=== PATIENT | female | born 1930 | race Caucasian/White ===

== ENCOUNTER 2016-11-12 16:02 | Emergency (ER) | payer MEDICARE ==
[2016-11-12 17:24] LABS: BASOPHILS 0.8 % (0.0-2.0); EOSINOPHILS 5.5 % (0-7); HEMATOCRIT 41.7 % (36.0-48.0); HEMOGLOBIN 13.7 g/dL (12-16); IMMATURE GRANULOCYTES 0.2 % (0-5); LYMPHOCYTES 38.5 % (15-50); MCH 31.7 pg (26.0-34.0); MCHC 32.9 g/dL (31.0-37.0); MCV 96.5 fL (80.0-100.0); MEAN PLATELET VOLUME 10.5 fL (7.4-10.4); MONOCYTES 11.9 % (2-11); NEUTROPHILS 43.1 % (40-80); PLATELET COUNT 135 10x3/uL (130-400); RBC 4.32 10x6/uL (4.00-5.40); RDW 13.8 % (11.5-14.5); WBC 5.1 10x3/uL (4.8-10.8)
[2016-11-12 17:37] LABS: ALBUMIN 3.5 g/dL (3.4-5.0); ANION GAP 11.9 mmol/L (8-16); BILIRUBIN - TOTAL 0.43 mg/dL (0.2-1.3); CALCIUM 9.1 mg/dL (8.5-10.1); CARBON DIOXIDE 29.9 mmol/L (21.0-32.0); CREATININE - SERUM 1.1 mg/dL (0.6-1.3); POTASSIUM - SERUM 3.8 mmol/L (3.5-5.1); PROTEIN - SERUM 7.1 g/dL (6.4-8.2)
[2016-11-12 17:41] LABS: APPEARANCE HAZY (CLEAR); BACTERIA MODERATE /hpf (NONE SEEN); BILIRUBIN NEGATIVE (NEGATIVE); COLOR YELLOW (YELLOW); EPITHELIAL CELLS 0-5 /hpf (0-5); GLUCOSE NEGATIVE (NEGATIVE); KETONE NEGATIVE (NEGATIVE); LEUKOCYTE ESTERASE TRACE (NEGATIVE); MUCUS <1+ /lpf (NONE SEEN); NITRITE NEGATIVE (NEGATIVE); PROTEIN NEGATIVE (NEGATIVE); UROBILINOGEN NORMAL (NORMAL); WHITE CELLS - URINE 0-5 /hpf (0-5)
== END 2016-11-12 20:43 | disposition home or self-care (01) ==
LOC: D.ER 16:02
PROVIDERS: Family Medicine
DX: R60.9 Edema, unspecified (principal); E11.9 Type 2 diabetes mellitus without complications; I10 Essential (primary) hypertension; E03.9 Hypothyroidism, unspecified

== ENCOUNTER 2017-01-25 03:23 | Emergency (ER) | payer MEDICARE ==
[2017-01-25 06:06] LABS: BASOPHILS 0.2 % (0-2); HEMOGLOBIN 14.7 g/dL (12-16); IMMATURE GRANULOCYTES 0.2 % (0-5); LYMPHOCYTES 8.2 % (15-50); MCH 31.3 pg (26.0-34.0); MCHC 32.7 g/dL (31.0-37.0); MCV 95.7 fL (80.0-100.0); MONOCYTES 4.9 % (2-11); NEUTROPHILS 85.5 % (40-80); RDW 13.6 % (11.5-14.5); WBC 12.6 10x3/uL (4.8-10.8)
[2017-01-25 06:14] LABS: ANION GAP 13.3 mmol/L (8-16); CALCIUM 9.2 mg/dL (8.5-10.1); CARBON DIOXIDE 28.8 mmol/L (21.0-32.0); CREATININE - SERUM 1.1 mg/dL (0.6-1.3); POTASSIUM - SERUM 4.1 mmol/L (3.5-5.1)
[2017-01-25 06:29] LABS: PLATELET COUNT 164 10x3/uL (130-400)
== END 2017-01-25 08:25 | disposition home or self-care (01) ==
LOC: D.ER 03:23
PROVIDERS: Emergency Medicine Emergency Medical Services
DX: K29.00 Acute gastritis without bleeding (principal); R11.0 Nausea; R53.81 Other malaise; E11.9 Type 2 diabetes mellitus without complications; I10 Essential (primary) hypertension; E03.9 Hypothyroidism, unspecified

== ENCOUNTER → 2018-09-12 12:26 | Outpatient (CLI) | payer MEDICARE ==
[2018-09-12 14:50] LABS: APPEARANCE CLEAR (CLEAR); BILIRUBIN NEGATIVE (NEGATIVE); COLOR YELLOW (YELLOW); GLUCOSE NEGATIVE (NEGATIVE); KETONE NEGATIVE (NEGATIVE); NITRITE NEGATIVE (NEGATIVE); PROTEIN NEGATIVE (NEGATIVE); UROBILINOGEN NORMAL (NORMAL)
[2018-09-12 14:53] LABS: BASOPHILS 0.6 % (0-2); EOSINOPHILS 4.3 % (0-7); HEMATOCRIT 41.7 % (36.0-48.0); HEMOGLOBIN 13.7 g/dL (12-16); IMMATURE GRANULOCYTES 0.2 % (0-5); LYMPHOCYTES 26.1 % (15-50); MCH 31.4 pg (26.0-34.0); MCHC 32.9 g/dL (31.0-37.0); MCV 95.6 fL (80.0-100.0); MEAN PLATELET VOLUME 10.8 fL (7.4-10.4); MONOCYTES 10.6 % (2-11); NEUTROPHILS 58.2 % (40-80); PLATELET COUNT 151 10x3/uL (130-400); RBC 4.36 10x6/uL (4.00-5.40); RDW 14.1 % (11.5-14.5); WBC 4.6 10x3/uL (4.8-10.8)
[2018-09-12 15:13] LABS: ALBUMIN 3.2 g/dL (3.4-5.0); ANION GAP 11.6 mmol/L (8-16); BILIRUBIN - TOTAL 0.39 mg/dL (0.2-1.3); CALCIUM 8.5 mg/dL (8.5-10.1); CARBON DIOXIDE 31.8 mmol/L (21.0-32.0); CREATININE - SERUM 0.9 mg/dL (0.6-1.3); POTASSIUM - SERUM 4.4 mmol/L (3.5-5.1); PROTEIN - SERUM 6.7 g/dL (6.4-8.2); THYROID STIMULATING HORMONE 0.98 uIU/mL (0.36-3.74)
== END | disposition home or self-care (01) ==
LOC: D.LABREF 12:26
PROVIDERS: Family Medicine
DX: N39.0 Urinary tract infection, site not specified (principal)

== ENCOUNTER → 2018-11-02 13:04 | Outpatient (CLI) | payer MEDICARE ==
[2018-11-02 14:06] LABS: APPEARANCE HAZY (CLEAR); BILIRUBIN NEGATIVE (NEGATIVE); COLOR STRAW (YELLOW); GLUCOSE NEGATIVE (NEGATIVE); KETONE NEGATIVE (NEGATIVE); NITRITE NEGATIVE (NEGATIVE); PROTEIN TRACE mg/dL (NEGATIVE); SPECIFIC GRAVITY 1.005 (1.005-1.020); UROBILINOGEN NORMAL (NORMAL)
[2018-11-02 14:07] LABS: BACTERIA MANY /hpf (NONE SEEN); EPITHELIAL CELLS OCC /hpf (0-5); MUCUS <1+ /lpf (NONE SEEN); RED CELLS - URINE 0-5 /hpf (0-5); WHITE CELLS - URINE 25-50 /hpf (0-5)
== END | disposition home or self-care (01) ==
LOC: D.LABREF 13:04
PROVIDERS: Family Medicine
DX: N39.0 Urinary tract infection, site not specified (principal)